=== PATIENT | male | born 1935 | race Caucasian/White ===

== ENCOUNTER 2016-08-04 08:23 | Inpatient (IN) | payer OTHER ==
[~2016-08-04] VITALS: Ht 188 cm; Wt 105.4 kg
[~2016-08-04 08:23] MED LIST: ACTOS45 MG PO; ADVAIR 500/501 DISK IH; ADVAIR HFA120 INHAL1 IH; AMLODIPINE BESYL5 MG PO; ASCORBIC ACID500 M3 PO; ASMANEX TW200 MICRO1 IH; ASPIR-LOW81 MG PO; ASPIRIN E.C.81 M1 PO; ASPIRIN81 M2 PO; ATORVASTATIN CA40 MG PO; AVODART0.5 MG PO; Ascorbic Acid PO; CARVEDILOL12.5 MG PO; CARVEDILOL6.25 MG PO; CENTRUM SILVER1 EAC1 PO; CENTRUM SILVER1 EAC3 PO; CITRUCEL907 G1 PO; CITRULLINE PO; COLACE100 MG PO; COREG12.5 M1 PO; Coreg PO; DIOVAN320 MG PO; DUONEB 2.5-0.5 M3 ML AEROSOL; FERROUS SULFAT325 MG PO; FINASTERIDE5 MG PO; FUROSEMIDE20 MG PO; GLUCOPHAGE500 MG PO; HEPARIN SO5000 UNITS SC; JANUVIA100 MG PO; KENALOG,ARISTOC80 GM TP; LEVAQUIN750 MG PO; LEVOFLOXACIN750 MG PO; LIPITOR40 MG PO; LISINOPRIL2.5 MG PO; LO-DOSE ASPIRIN81 M1 PO; LOSARTAN POTAS100 MG PO; METFORMIN HCL500 MG PO; NASONEX17 GM BOTH NARES; NORVASC5 MG PO; NOVOLOG PE100 UNITS/ SC; PRANDIN1 MG PO; PRANDIN2 MG PO; PROSCAR5 MG PO; REPAGLINIDE2 MG PO; SENNA-TIME S T1 EACH PO; SERTRALINE HCL25 MG PO; SPIRIVA1 INHALATI IH; TYLENOL REGULA325 MG PO; VALSARTAN320 MG PO; VITAMIN C250 MG PO; VITAMIN C500 M1 PO; Vicodin,Lortab 5/500 PO; ZOLOFT25 MG PO; ZOLPIDEM TARTRAT5 MG PO; [UNRECOGNIZED DRUG - OTHER] PO
[2016-08-04 09:18] LABS: EOSINOPHIL (%) 2.8 % (0-5); EOSINOPHIL COUNT 0.2 K/uL (0-0.3); HEMATOCRIT 29.1 % (38.0-50.0); IMMATURE GRANULOCYTE (%) 0.2 % (0.0-0.7); IMMATURE GRANULOCYTE COUNT 0.1 K/uL; MCH 32.2 PG (29.0-34.0); MCV 97.7 FL (86-99); MONOCYTE (%) 10.9 % (3-12); MONOCYTE COUNT 0.7 K/uL (0-0.8); NEUTROPHIL (%) 70.8 % (45-76); NEUTROPHIL COUNT 4.5 K/uL (1.8-6.4); PLATELET COUNT 186 K/uL (156-360); RBC DIS.WIDTH-CV 13.5 % (11.8-14.6); RBC DIS.WIDTH-SD 45.7 % (39-53); RED BLOOD COUNT 2.98 M/uL (4.00-5.50); WHITE BLOOD COUNT 6.4 K/uL (4.1-10.2)
[2016-08-04 09:25] LABS: CHLORIDE 105 mEq/L (99-109); POTASSIUM 4.9 mEq/L (3.7-5.4); SODIUM 138 mEq/L (136-147)
[2016-08-04 09:27] LABS: GLUCOSE 175 mg/dL (70-99)
[2016-08-04 09:29] LABS: ANION GAP 6 MEQ/L (2-14)
[2016-08-04 09:31] LABS: GFR ESTIMATE (CALCULATED) 41 mL/min/
[2016-08-04 09:32] LABS: UREA NITROGEN (BUN) 34 mg/dL (9-23)
[2016-08-04 10:57] LABS: ADD MIUA? YES; BILIRUBIN NEGATIVE; BLOOD TRACE; COLOR YELLOW ((YELLOW)); GLUCOSE (STRIP) 100; KETONES NEGATIVE; LEUKOCYTES NEGATIVE; NITRITE NEGATIVE; PH, URINE 7.5 (5-8); PROTEIN (STRIP) >=300; SPECIFIC GRAVITY 1.014 (1.000-1.030); UROBILINOGEN 0.2 MG/DL (0.2-1.0)
[2016-08-04 11:20] LABS: EPITHELIAL CELLS NONE SEEN; MUCUS NONE SEEN; WHITE BLOOD CELLS RARE /HPF (0-5)
[2016-08-04 11:21] LABS: BACTERIA RARE; CASTS NONE SEEN /LPF; CRYSTALS NONE SEEN
[2016-08-04] MEDS ORDERED: REPAGLINIDE2 MG PO (12:29)
[2016-08-04] MEDS ORDERED: METFORMIN HCL500 MG PO (12:30)
[2016-08-04] MEDS ORDERED: COREG6.25 M1 PO (12:31)
[2016-08-04] MEDS ORDERED: NORVASC5 MG PO (12:31)
[2016-08-04] MEDS ORDERED: VALSARTAN160 MG PO (12:31)
[2016-08-04] MEDS ORDERED: PIOGLITAZONE HC45 MG PO (12:32)
[2016-08-04] MEDS ORDERED: FUROSEMIDE20 MG PO (12:33)
[2016-08-04] MEDS ORDERED: SPIRIVA1 INHALATI IH (12:33)
[2016-08-04] MEDS ORDERED: ADVAIR 500/501 DISK IH (12:34)
[2016-08-04] MEDS ORDERED: ASPIR-LOW81 MG PO (12:34)
[2016-08-04 15:36] LABS: TROP-I INTERPRETATION NEGATIVE; TROPONIN-I < 0.01 ng/mL (0.0-0.30)
[2016-08-04 18:00] VITALS: BP 184/77
[2016-08-04 23:09] VITALS: BP 187/84
[2016-08-05 07:54] VITALS: BP 172/89
[2016-08-05 10:10] LABS: ANION GAP 7 MEQ/L (2-14); CHLORIDE 106 MEQ/L (99-109); POTASSIUM 5.1 MEQ/L (3.7-5.4); SAMPLE HEMOLYSIS CHECK 0; SAMPLE ICTERIC CHECK 0; SAMPLE LIPEMIA CHECK 0; SODIUM 137 MEQ/L (136-147)
[2016-08-05 10:15] LABS: GFR ESTIMATE (CALCULATED) 51 mL/min/; GLUCOSE 169 mg/dL (70-99); UREA NITROGEN (BUN) 25 mg/dL (9-23)
[2016-08-05 11:54] VITALS: BP 184/87
[2016-08-05 15:38] VITALS: BP 190/90
[2016-08-05 19:56] VITALS: BP 164/88
[2016-08-05 23:12] VITALS: BP 174/90
[2016-08-06] VITALS (9 sets, daily range): BP systolic 164–228; BP diastolic 80–98
[2016-08-06 09:03] LABS: EOSINOPHIL (%) 0.6 % (0-5); EOSINOPHIL COUNT 0.1 K/uL (0-0.3); HEMATOCRIT 30.4 % (38.0-50.0); IMMATURE GRANULOCYTE (%) 0.2 % (0.0-0.7); LYMPHOCYTE COUNT 0.8 K/uL (1.0-2.8); MCH 31.4 PG (29.0-34.0); MCHC 33.2 G/DL (30.0-36.0); MCV 94.4 FL (86-99); MEAN PLAT.VOLUME 9.3 uM^3 (9.0-12.4); MONOCYTE (%) 12.6 % (3-12); NEUTROPHIL (%) 77.2 % (45-76); NEUTROPHIL COUNT 6.3 K/uL (1.8-6.4); PLATELET COUNT 202 K/uL (156-360); RBC DIS.WIDTH-CV 13.7 % (11.8-14.6); RBC DIS.WIDTH-SD 47.5 % (39-53); RED BLOOD COUNT 3.22 M/uL (4.00-5.50); WHITE BLOOD COUNT 8.2 K/uL (4.1-10.2)
[2016-08-06 09:29] LABS: Estimated Average Glucose 192 mg/dL (70-123); HEMOGLOBIN A1c (GLYCOHEMOGLOB) 8.3 % HGB (Below 5.7)
[2016-08-06 09:40] LABS: ALKALINE PHOSPHATASE 90 IU/L (3-129); ANION GAP 5 MEQ/L (2-14); CHLORIDE 108 MEQ/L (99-109); GFR ESTIMATE (CALCULATED) 51 mL/min/; GLUCOSE 170 mg/dL (70-99); HDL CHOLESTEROL 45 MG/DL (Desirable>=40); LDL CHOLESTEROL 110 mg/dL (Desirable<100); NON-HDL CHOLESTEROL 132 mg/dL (Desirable<160); POTASSIUM 4.7 MEQ/L (3.7-5.4); SAMPLE HEMOLYSIS CHECK 0; SAMPLE ICTERIC CHECK 0; SAMPLE LIPEMIA CHECK 0; SODIUM 139 MEQ/L (136-147); TOTAL BILIRUBIN 0.4 MG/DL (0.0-1.0); TOTAL CHOLESTEROL 177 mg/dL (Desirable<200); TRIGLYCERIDES 109 MG/DL (Normal: <150); UREA NITROGEN (BUN) 24 mg/dL (9-23)
[2016-08-07 00:37] VITALS: BP 163/73
[2016-08-07 03:53] VITALS: BP 164/89
[2016-08-07 12:45] VITALS: BP 175/79
[2016-08-07 17:03] VITALS: BP 157/84
[2016-08-07 19:38] VITALS: BP 149/76
[2016-08-08] VITALS (8 sets, daily range): BP systolic 156–194; BP diastolic 73–101
[2016-08-09] VITALS (9 sets, daily range): BP systolic 158–186; BP diastolic 78–91
[2016-08-09 09:56] LABS: HEMATOCRIT 33.3 % (38.0-50.0); MCH 32.8 PG (29.0-34.0); MCHC 33.6 G/DL (30.0-36.0); MCV 97.7 FL (86-99); MEAN PLAT.VOLUME 10.6 uM^3 (9.0-12.4); PLATELET COUNT 258 K/uL (156-360); RBC DIS.WIDTH-CV 14.3 % (11.8-14.6); RBC DIS.WIDTH-SD 51.3 % (39-53); RED BLOOD COUNT 3.41 M/uL (4.00-5.50); WHITE BLOOD COUNT 13.8 K/uL (4.1-10.2)
[2016-08-09 10:35] LABS: ANION GAP 8 MEQ/L (2-14); CHLORIDE 115 MEQ/L (99-109); GFR ESTIMATE (CALCULATED) 36 mL/min/; POTASSIUM 5.6 MEQ/L (3.7-5.4); SAMPLE HEMOLYSIS CHECK 0; SAMPLE ICTERIC CHECK 0; SAMPLE LIPEMIA CHECK 0; SODIUM 144 MEQ/L (136-147)
[2016-08-09 10:36] LABS: GLUCOSE 462 mg/dL (70-99); UREA NITROGEN (BUN) 51 mg/dL (9-23)
[2016-08-10 03:34] VITALS: BP 188/76
[2016-08-10 07:55] VITALS: BP 178/88
[2016-08-10 14:26] LABS: POINT-OF-CARE METER ID UU14174225
[2016-08-10 15:53] VITALS: BP 155/72
[2016-08-11] VITALS: BP 178/72
[2016-08-11 02:31] VITALS: BP 117/63
[2016-08-11 07:52] VITALS: BP 146/69
[2016-08-11 11:11] LABS: POINT-OF-CARE USER ID 612031313
== END 2016-08-11 23:16 | DRG 64 ==
LOC: EME → EDBD 08:23 → EME 08:23 → 5SOUTH 13:04 → EDOF 13:04 → 5SOUTH 17:43
PROVIDERS: Hospitalist; Internal Medicine; Physician Assistant
DX: I63.9 Cerebral infarction, unspecified (principal); G93.6 Cerebral edema; G81.94 Hemiplegia, unspecified affecting left nondominant side; I13.0 Hypertensive heart and chronic kidney disease with heart failure and stage 1 through stage 4 chronic kidney disease, or unspecified chronic kidney disease; I50.30 Unspecified diastolic (congestive) heart failure; R13.10 Dysphagia, unspecified; E11.22 Type 2 diabetes mellitus with diabetic chronic kidney disease; D63.1 Anemia in chronic kidney disease; I25.10 Atherosclerotic heart disease of native coronary artery without angina pectoris; N18.3 Chronic kidney disease, stage 3 (moderate); J44.9 Chronic obstructive pulmonary disease, unspecified; I27.2 Other secondary pulmonary hypertension; E78.5 Hyperlipidemia, unspecified; F03.90 Unspecified dementia, unspecified severity, without behavioral disturbance, psychotic disturbance, mood disturbance, and anxiety; I73.9 Peripheral vascular disease, unspecified; Z99.81 Dependence on supplemental oxygen; Z79.82 Long term (current) use of aspirin; Z95.1 Presence of aortocoronary bypass graft; Z86.73 Personal history of transient ischemic attack (TIA), and cerebral infarction without residual deficits; Z66 Do not resuscitate; Z51.5 Encounter for palliative care
CPT/HCPCS: 70450; 70551; 71010; 72040; 80048; 80053; 80061; 81003; 82948; 83036; 84295; 84484; 85025; 85027; 92610 GN; 93306; 93880; 94640; 94640 76; 94799; 99281; 99285; J1100; J1630; J1644; J1815; J2060; J2270; J7030